=== PATIENT | female | born 1950 | race Caucasian/White ===

== ENCOUNTER 2016-05-01 06:08 | Emergency (ER) | payer MEDICARE, OTHER ==
[~2016-05-01] VITALS: Ht 152.4 cm; Wt 64.0 kg
[2016-05-01 06:17] VITALS: Ht 152.4 cm; Wt 64.0 kg
[2016-05-01] MEDS ORDERED: ALBUTEROL 0.5% (NEB) 2.5 MG/0.5 ML AMP NEB STA (06:57)
[2016-05-01] MEDS ORDERED: predniSONE 20 MG TAB PO ONE (07:00)
--- NOTE | 2016-05-01 07:28 | ERD ---
ER Documentation Chief Complaint Date/Time DATE: 05/01/16 TIME: 07:26 Chief Complaint SOB,cold symptoms,cough HPI 66-year-old female with a history of asthma comes in with cold symptoms for 3 days with wheezing. She states that she has not had asthma symptoms since she was a child, over the last 3 days she has developed nasal rhinorrhea, dry cough , and reports wheezing, does not have medication at home. She denies fevers, chills, chest pain. She has a history of smoking, she quit 2 months ago. ROS All systems reviewed and are negative except as per history of present illness. Allergies Allergies: Coded Allergies: Acetaminophen (Verified Allergy, Unknown, 08/09/07) Hydrocodone (Verified Allergy, Unknown, 08/09/07) Physical Exam Vitals Vital Signs Date Time Temp Pulse Resp B/P Pulse Ox O2 Delivery O2 Flow Rate FiO2 05/01/16 07:13 68 18 97 21 05/01/16 06:17 96.9 66 18 170/73 100 Physical Exam General: Well-developed, well-nourished. The patient appears in no acute distress. HEENT: Head is normocephalic, atraumatic. No scleral icterus. Pupils are equal , round, and reactive. Oral mucous membranes are moist. No pharyngeal erythema. Neck: Supple. Nontender. Lungs: Scant wheezing bilaterally, mildly diminished breath sounds, not tachypneic, nonlabored. No rales or rhonchi. Heart: Regular rate and rhythm. S1 and S2 are normal. No murmurs, gallops, or rubs. Abdomen: Soft, nontender, nondistended. Bowel sounds are normoactive. Extremities: No clubbing or cyanosis. Normal pulses. Moving extremities x 4. No weakness. Neurologic: Alert and oriented 3. No focal deficits. Skin: Normal turgor. No rash or lesions. Results 24 hrs Current Medications Medications (Trade) Dose Ordered Sig/Adelso Route PRN Reason Start Time Stop Time Status Last Admin Dose Admin Albuterol (Proventil 0.5% (Neb)) 5 mg ONCE STAT NEB 05/01/16 06:57 05/01/16 06:58 DC 05/01/16 07:13 Prednisone (Prednisone) 40 mg ONCE ONCE PO 05/01/16 07:00 05/01/16 07:01 DC 05/01/16 07:01 Procedures/MDM ED course: Patient was given albuterol neb breathing treatment 5 mg, prednisone 40 mg. Re auscultation shows clear breath sounds, patient reports to be feeling much better. MDM: The patient is a 66-year-old female who comes in with an acute upper respiratory infection, presumed viral, with an asthma exacerbation. Breathing treatment was administered in the emergency department, she was also given prednisone to start. She reports to be feeling much better at this time. The patient has a differential diagnosis of a viral upper respiratory infection, bacterial upper respiratory infection, bronchitis, pneumonia, pharyngitis, laryngitis, epiglottitis, croup, pneumonia. Patient has a normal pulmonary examination, clear breath sounds, normal pulse oximetry, with no corrective measures needed at this time. Fluids, rest, antipyretics were encouraged. Patient's blood pressure was elevated (>120/80) but appears stable without evidence of hypertension emergency or urgency. The patient was counseled about the risks of hypertension and urged to pursue outpatient monitoring and therapy within a week with their primary care physician. Departure Diagnosis: Primary Impression: Acute URI Additional Impression: Asthma exacerbation Condition: BRANDON Rodríguez PA-C May 01, 2016 07:28
[2016-05-01] MEDS ORDERED: ALBU8.5H3 INH (07:29)
[2016-05-01] MEDS ORDERED: PRED20TA PO (07:29)
[2016-05-01 08:00] VITALS: BP 130/73; PULSE 73; RESP 18; TEMP 96.9
== END 2016-05-01 08:00 | disposition home or self-care (01) ==
LOC: FTE 06:08
DX: J06.9 Acute upper respiratory infection, unspecified (principal); J45.901 Unspecified asthma with (acute) exacerbation
CPT/HCPCS: 94664; J7512

== ENCOUNTER 2016-05-27 15:13 | Emergency (ER) | payer MEDICARE, OTHER ==
[~2016-05-27] VITALS: Ht 152.4 cm; Wt 65.0 kg
[~2016-05-27 15:13] MED LIST: ALBU8.5H3 INH; PRED20TA PO
[2016-05-27 15:23] VITALS: Ht 152.4 cm; Wt 65.0 kg
[2016-05-27 16:55] LABS: ADD SCAN DIFF NO
[2016-05-27 16:57] LABS: INR 0.88; PROTIME 11.9 Sec (12.2-14.2); PT RATIO 0.9
[2016-05-27 16:58] LABS: PARTIAL THROMBOPLASTIN TIME 27.7 Sec (25.0-35.0)
[2016-05-27 17:01] LABS: BASOPHIL # 0.1 10^3/ul (0.0-0.1); BASOPHILS % 0.6 % (0.0-2.0); EOSINOPHILS # 0.6 10^3/ul (0.0-0.5); EOSINOPHILS % 7.4 % (0.0-7.0); LYMPHOCYTES # 3.5 10^3/ul (0.8-2.9); LYMPHOCYTES % 42.7 % (15.0-51.0); MEAN CORPUSCULAR HEMOGLOBIN 30.1 pg (29.0-33.0); MEAN CORPUSCULAR HGB CONC 33.3 g/dl (32.0-37.0); MEAN CORPUSCULAR VOLUME 90.4 fl (82.0-101.0); MEAN PLATELET VOLUME 10.4 fl (7.4-10.4); MONOCYTE # 0.4 10^3/ul (0.3-0.9); MONOCYTES % 5.3 % (0.0-11.0); NEUTROPHIL # 3.6 10^3/ul (1.6-7.5); NEUTROPHILS % 43.8 % (39.0-77.0); PLATELET COUNT 277 10^3/UL (140-415); RED BLOOD COUNT 4.98 10^6/ul (4.20-5.40); RED CELL DISTRIBUTION WIDTH 12.8 % (11.5-14.5); WHITE BLOOD COUNT 8.3 10^3/ul (4.8-10.8)
--- NOTE | 2016-05-27 17:15 | RADRPT ---
PROCEDURE: XR Chest. CLINICAL INDICATION: Chest pain TECHNIQUE: AP view of the chest was performed. COMPARISON: August 09, 2007 FINDINGS: The cardiomediastinal silhouette is within normal limits. The lungs are clear. No signs of pleural f luid or pneumothorax are seen. The osseous structures and soft tissues are unremarkable. IMPRESSION: No evidence for active cardiopulmonary disease. No interval change. RPTAT: QQ .Imani Loya MD, MD Date Time Electronically viewed and signed by .Imani Loya MD, on 05/27/2016 17:14 .F/
--- NOTE | 2016-05-27 18:05 | ERD ---
ER Documentation Chief Complaint Date/Time DATE: 05/27/16 TIME: 18:01 Chief Complaint pressure like chest pain 1 hour ago, went away upon arrival to er -,-sob HPI 66-year-old female with no past medical history presenting after she had squeezing, pressure-like chest pain one hour ago. She states she was sitting when this happened. It lasted about 1-2 minutes. It was gradual in onset and became very strong, 10 out of 10. It was nonradiating. No associated nausea, vomiting, dizziness, diaphoresis, or shortness of breath. There was no exacerbating or alleviating factors. The pain self resolved and currently she is asymptomatic. She recently had a physical exam about 3 months ago and was told she had no medical problems. ROS All systems reviewed and are negative except as per history of present illness. Medications Home Meds Discontinued Scripts Albuterol Sulfate* (Proair HFA*) 8.5 Gm Hfa.aer.ad, 2 PUFF INH Q4, #1 INHALER Prov:BRANDON BOWDEN PA-C 05/01/16 Prednisone* (Prednisone*) 20 Mg Tab, 40 MG PO DAILY for 4 Days, TAB Prov:BRANDON BOWDEN PA-C 05/01/16 Allergies Allergies: Coded Allergies: acetaminophen (Verified Allergy, Unknown, 05/27/16) hydrocodone (Verified Allergy, Unknown, 05/27/16) PMhx/Soc Medical and Surgical Hx: pt denies Medical Hx, pt denies Surgical Hx Hx Alcohol Use: Yes (20 years ago) Hx Substance Use: No Hx Tobacco Use: Yes Smoking Status: Current every day smoker FmHx Family History: coronary disease (mother in her 70s from a heart attack) Physical Exam Vitals Vital Signs Date Time Temp Pulse Resp B/P Pulse Ox O2 Delivery O2 Flow Rate FiO2 05/27/16 18:23 97.6 55 17 157/66 100 Room Air 05/27/16 16:53 56 16 147/79 100 Room Air 05/27/16 15:23 97.8 64 18 187/100 99 Physical Exam Const: Well-appearing, nontoxic, no distress Head: Atraumatic Eyes: Normal Conjunctiva ENT: Normal External Ears, Nose and Mouth. Neck: Full range of motion. No meningismus. Resp: Clear to auscultation bilaterally Cardio: Regular rate and rhythm, no murmurs Abd: Soft, non tender, non distended. Normal bowel sounds Skin: No petechiae or rashes Back: No midline or flank tenderness Ext: No cyanosis, or edema Neur: Awake and alert Psych: Normal Mood and Affect Result Diagram: 05/27/16 1630 05/27/16 1630 Results 24 hrs Laboratory Tests Test 05/27/16 16:30 05/27/16 19:30 Activated Partial Thromboplast Time 27.7Sec Anion Gap 16 Basophils # 0.110^3/ul Basophils % 0.6% Blood Urea Nitrogen 10mg/dl Calcium Level 10.2mg/dl Carbon Dioxide Level 27mmol/L Chloride Level 106mmol/L Creatinine 0.61mg/dl Eosinophils # 0.610^3/ul Eosinophils % 7.4% Glucose Level 121mg/dl Hematocrit 45.0% Hemoglobin 15.0g/dl INR International Normalized Ratio 0.88 Lymphocytes # 3.510^3/ul Lymphocytes % 42.7% Mean Corpuscular Hemoglobin 30.1pg Mean Corpuscular Hemoglobin Concent 33.3g/dl Mean Corpuscular Volume 90.4fl Mean Platelet Volume 10.4fl Monocytes # 0.410^3/ul Monocytes % 5.3% Neutrophils # 3.610^3/ul Neutrophils % 43.8% Nucleated Red Blood Cells # 0.010^3/ul Nucleated Red Blood Cells % 0.0/100WBC Platelet Count 23182^3/UL Potassium Level 4.1mmol/L Prothrombin Time 11.9Sec Prothrombin Time Ratio 0.9 Red Blood Count 4.9810^6/ul Red Cell Distribution Width 12.8% Sodium Level 145mmol/L Troponin I < 0.012ng/ml < 0.010ng/ml White Blood Count 8.310^3/ul Procedures/MDM EKG #1: Rate/Rhythm: Normal Sinus Rhythm QRS, ST, T-waves: No changes consistent w/ acute ischemia Impression: No evidence of ischemia or arrhythmia EKG #2: Rate/Rhythm: Sinus bradycardia QRS, ST, T-waves: No changes consistent w/ acute ischemia Impression: No evidence of ischemia or arrhythmia The patient presents with chest pain that has now resolved. Vitals are stable. I considered pulmonary embolism, aortic dissection, pneumothorax among other diagnoses. Evaluation for acute coronary syndrome was performed. The HEART score was utilized for risk stratification and found to be 3. Repeat EKG and troponin @ 3 hours were unchanged. Based on this evaluation the patient's risk of major adverse cardiac events is <1%. Shared decision making occurred with patient and the decision has been made to discharge the patient for outpatient evaluation and functional study within 72 hours. Patient instructed to arrange follow up with PCP in the next 2 days and return to the ED for any new or worsening symptoms. Departure Diagnosis: Primary Impression: Chest pain Chest pain type: other chest pain Qualified Code: R07.89 - Other chest pain Condition: Stable EKISSA FELDMAN MD May 27, 2016 18:05
[2016-05-27 18:06] LABS: CHLORIDE 106 mmol/L (97-110); SODIUM 145 mmol/L (135-144)
[2016-05-27 18:07] LABS: POTASSIUM 4.1 mmol/L (3.5-5.1)
[2016-05-27 18:09] LABS: CREATININE 0.61 mg/dl (0.44-1.00)
[2016-05-27 18:10] LABS: ANION GAP 16 (8-16); BLOOD UREA NITROGEN 10 mg/dl (7-20); CALCIUM 10.2 mg/dl (8.4-10.2); CARBON DIOXIDE 27 mmol/L (21-31); GLUCOSE 121 mg/dl (70-220)
[2016-05-27 18:26] LABS: TROPONIN-I < 0.012 ng/ml (0.00-0.12)
[2016-05-27 20:50] VITALS: BP 141/77; PULSE 57; RESP 18; TEMP 98
== END 2016-05-27 20:50 | disposition home or self-care (01) ==
LOC: E/R 15:13
DX: R07.89 Other chest pain (principal); F17.210 Nicotine dependence, cigarettes, uncomplicated; R40.2142 Coma scale, eyes open, spontaneous, at arrival to emergency department; R40.2252 Coma scale, best verbal response, oriented, at arrival to emergency department; R40.2362 Coma scale, best motor response, obeys commands, at arrival to emergency department
CPT/HCPCS: 36415; 71010; 80048; 84484; 85025; 85610; 85730; 93005

== ENCOUNTER 2018-07-27 13:57 | Emergency (ER) | payer MEDICARE, OTHER ==
[~2018-07-27] VITALS: Ht 152.4 cm; Wt 64.2 kg
[2018-07-27 14:00] VITALS: Ht 152.4 cm; Wt 64.2 kg
[2018-07-27] MEDS ORDERED: AMLO2.5T78 PO (14:15)
--- NOTE | 2018-07-27 14:26 | ERD ---
ER Documentation Chief Complaint Chief Complaint HTN, has been off BP meds for 3 yrs HPI Patient is a 68-year-old female with hypertension who presents with high blood pressure. She has been off of her amlodipine for the past 3 months because she ran out and did not get her medicine refilled. She denies symptoms other than buzzing in the ears. She said that she is supposed to take amlodipine 2.5 mg daily. Upon review of old medical records this is the patient's third visit to the ER since 2017. ROS All systems reviewed and are negative except as per history of present illness. Medications Home Meds Active Scripts Amlodipine Besylate* (Amlodipine Besylate*) 2.5 Mg Tablet, 2.5 MG PO DAILY, #30 TAB Prov:JERE CHINCHILLA MD 07/27/18 Allergies Allergies: Coded Allergies: acetaminophen (Verified Allergy, Unknown, 05/27/16) hydrocodone (Verified Allergy, Unknown, 05/27/16) PMhx/Soc Hx Alcohol Use: Yes (20 years ago) Hx Substance Use: No Hx Tobacco Use: Yes FmHx Family History: No diabetes Physical Exam Vitals Vital Signs Date Temp Pulse Resp B/P (MAP) Pulse Ox O2 O2 Flow FiO2 Time Delivery Rate 07/27/18 98.0 95 18 200/94 98 14:00 (129) Physical Exam Const: No acute distress Head: Atraumatic Eyes: Normal Conjunctiva ENT: Normal External Ears, Nose and Mouth. Neck: Full range of motion. No meningismus. Resp: Clear to auscultation bilaterally Cardio: Regular rate and rhythm, no murmurs Abd: Soft, non tender, non distended. Normal bowel sounds Skin: No petechiae or rashes Back: No midline or flank tenderness Ext: No cyanosis, or edema Neur: Awake and alert Psych: Normal Mood and Affect Results 24 hrs Current Medications Medications Dose Sig/Adelso Start Time Status Last (Trade) Ordered Route PRN Stop Time Admin Dose Reason Admin Nicardipine 30 mg ONCE ONCE 07/27/18 HCl PO 14:30 (Cardene) 07/27/18 14:31 Procedures/MDM Patient is a 68-year-old female presents with acute on chronic hypertension. She has no symptoms and is well-appearing in the emergency department. She will be given Cardene to bring on her blood pressure as it is greater than 200 systolic. She will be given a prescription for her amlodipine 2.5 mg daily for a month supply. I did tell her that she needs a follow-up closely with her jose callejas doctor and have refills given her in the future before she runs out. Departure Diagnosis: Primary Impression: Hypertension Hypertension type: essential hypertension Qualified Codes: I10 - Essential (primary) hypertension Condition: Fair Patient Instructions: High Blood Pressure (Hypertension) Referrals: Your doctor Additional Instructions: Llame al doctor nombrado estefanía (Referral Sources) MAANA y pro lety ARA PARA DENTRO DE LETY SEMANA. Dgale a la secretaria que nosotros le instruimos hacer esta ara.Avise o llame si alejo condicin se empeora antes de la ara. JERE CHINCHILLA MD Jul 27, 2018 14:26
[2018-07-27] MEDS ORDERED: NICARDipine HCL 30 MG CAPSULE PO ONE (14:30)
[2018-07-27 14:53] VITALS: BP 170/100; PULSE 80; RESP 18
== END 2018-07-27 15:07 | disposition home or self-care (01) ==
LOC: E/R 13:57
DX: R51 Headache (principal); Z87.891 Personal history of nicotine dependence
CPT/HCPCS: 99283